=== PATIENT | male | born 1975 | race Two or more races ===

== ENCOUNTER 2024-09-23 23:43 | Inpatient (IN) | payer OTHER ==
[~2024-09-23] VITALS: Ht 177.8 cm; Wt 72.7 kg
[2024-09-24 01:51] LABS: PLATELET COUNT (AUTO) 320 K/uL (150-450); RED BLOOD CELL COUNT(AUTO) 4.17 MIL/uL (4.50-5.90); RED CELL DISTRIBUTION WIDTH 13.5 % (11.5-14.5); WHITE BLOOD COUNT (AUTO) 4.3 K/uL (4.5-11.0)
[2024-09-24 01:56] LABS: CALCIUM, TOTAL 9.4 mg/dL (8.8-10.5); CREATININE 0.85 mg/dL (0.60-1.30); GLOMERULAR FILTR. RATE CALC > 60 mL/min (>60); GLUCOSE,RANDOM 109 mg/dL (70-110); SODIUM SERUM 137 mmol/L (136-145); UREA NITROGEN, BLOOD 15 mg/dL (7-18)
[2024-09-24 02:20] LABS: COVID AG,FIA SOURCE NASAL SWAB
[2024-09-24 02:24] LABS: SARS-COV2 (COVID) ANTIGEN,FIA Positive (Negative)
[2024-09-24 02:44] LABS: APPEARANCE,URINE CLEAR (CLEAR); GLUCOSE, URINE (UA) NEGATIVE (NEGATIVE); LEUKOCYTE ESTERASE ,URINE NEGATIVE (NEGATIVE); NITRATE,URINE NEGATIVE (NEGATIVE); OCCULT BLOOD,URINE NEGATIVE (NEGATIVE); PH,URINE DRUG SCREEN 6.5 (5.0-8.0); SPECIFIC GRAVITIY, URINE 1.005 (1.003-1.030)
[2024-09-24 02:50] LABS: ALCOHOL, URINE DRUG SCREEN NEGATIVE (NEGATIVE); AMPHET/METH SCREEN,URINE NEGATIVE (NEGATIVE); BARBITURATE SCREEN, URINE NEGATIVE (NEGATIVE); CANNABINOID SCREEN,URINE NEGATIVE (NEGATIVE); COCAINE SCREEN,URINE NEGATIVE (NEGATIVE); METHADONE SCREEN, URINE NEGATIVE (NEGATIVE)
[2024-09-24] MEDS ORDERED: ALBUTEROL SULFATE 2.5 MG/0.5 ML NEB SOLUTION NEB PRN (05:00)
[2024-09-24] MEDS ORDERED: ONDANSETRON HCL 4 MG/2 ML VIAL IVP PRN (05:00)
[2024-09-24] MEDS ORDERED: ACETAMINOPHEN 325 MG TABLET PO PRN (05:00)
[2024-09-24] MEDS ORDERED: IPRATROPIUM BROMIDE 0.5 MG/2.5 ML NEB SOLUTION NEB PRN (05:00)
[2024-09-24] MEDS: MAGNESIUM SULFATE 2 GM, MVI, ADULT NO.1 WITH VIT K 10 ML, THIAMINE 100 MG, FOLIC ACID 1... IV SCH (07:13)
[2024-09-24] MEDS: HEPARIN SODIUM,PORCINE 5,000 UNITS/ML VIAL SQ SCH (07:31)
[2024-09-24] MEDS: DOCUSATE SODIUM 100 MG CAPSULE PO SCH (08:08)
[2024-09-24 08:45] VITALS: BP 151/94; PULSE 60; RESP 20; TEMP 98.1; O2SAT 98
[2024-09-24 10:00] VITALS: BP 151/94; PULSE 60; RESP 20; TEMP 98.1; O2SAT 99
[2024-09-24 15:45] VITALS: BP 140/90; PULSE 70; RESP 18; TEMP 97.9; O2SAT 95
[2024-09-24 19:25] VITALS: BP 145/84; PULSE 63; RESP 19; TEMP 98.1; O2SAT 95
[2024-09-25 04:55] VITALS: BP 139/85; PULSE 59; RESP 19; TEMP 97.9; O2SAT 98
[2024-09-25 06:17] LABS: PLATELET COUNT (AUTO) 314 K/uL (150-450); RED BLOOD CELL COUNT(AUTO) 4.11 MIL/uL (4.50-5.90); RED CELL DISTRIBUTION WIDTH 13.7 % (11.5-14.5); WHITE BLOOD COUNT (AUTO) 5.7 K/uL (4.5-11.0)
[2024-09-25 06:50] LABS: CALCIUM, TOTAL 9.0 mg/dL (8.8-10.5); CREATININE 0.80 mg/dL (0.60-1.30); GLOMERULAR FILTR. RATE CALC > 60 mL/min (>60); GLUCOSE,RANDOM 115 mg/dL (70-110); SODIUM SERUM 139 mmol/L (136-145); UREA NITROGEN, BLOOD 10 mg/dL (7-18)
[2024-09-25 07:57] VITALS: BP 147/89; PULSE 58; RESP 18; TEMP 97.9; O2SAT 98
[2024-09-25 09:09] VITALS: BP 147/89; PULSE 58; RESP 18; TEMP 97.9; O2SAT 98
[2024-09-25 15:23] VITALS: BP 152/94; PULSE 53; RESP 18; TEMP 98.4; O2SAT 97
[2024-09-25] MEDS ORDERED: AMLO-257 PO (15:51)
== END 2024-09-25 18:06 | disposition home or self-care (01) | DRG 604 ==
LOC: EMS 23:43 → EDH 09-24 04:50 → 6N 09-24 08:47 → 4E 09-24 18:43
PROVIDERS: ADMIT Internal Medicine; ATTEND Internal Medicine
DX: S61.511A Laceration without foreign body of right wrist, initial encounter (principal); U07.1 COVID-19; F10.239 Alcohol dependence with withdrawal, unspecified; R45.851 Suicidal ideations; F32.9 Major depressive disorder, single episode, unspecified; X58.XXXA Exposure to other specified factors, initial encounter; F43.21 Adjustment disorder with depressed mood; I10 Essential (primary) hypertension; Y92.89 Other specified places as the place of occurrence of the external cause; Y93.89 Activity, other specified; Y99.8 Other external cause status; Z79.899 Other long term (current) drug therapy
CPT/HCPCS: 71045; 80048; 80307; 81003; 83735; 85025; 96365; 99285; G0378; G0480; J1644; J3411; J3475; J3490; J7030; 36415-L1; 36415-TC